=== PATIENT | female | born 1990 | race African-American/Black ===

== ENCOUNTER 2018-10-18 10:09 | Emergency (ER) | payer BC ==
[~2018-10-18] VITALS: Ht 170.2 cm; Wt 98.0 kg
[2018-10-18] MEDS ORDERED: BACITRACIN ZINC OINT UDPKT TOP ONE (15:15)
[2018-10-18] MEDS ORDERED: TETANUS, DIPHTHERIA, PERTUSSIS VAC/PF 0.5ML (>7YR OLD) IM ONE (15:15)
[2018-10-18] MEDS ORDERED: LIDOCAINE HCL/PF 1% 10 MG/ML 5ML VIAL IJ ONE (15:15)
[2018-10-18 16:46] VITALS: BP 120/66
== END 2018-10-18 16:49 | disposition home or self-care (01) ==
LOC: ER 10:09
DX: S81.012A Laceration without foreign body, left knee, initial encounter (principal); S81.011A Laceration without foreign body, right knee, initial encounter; Z98.890 Other specified postprocedural states; W18.39XA Other fall on same level, initial encounter; Y93.89 Activity, other specified; Y92.89 Other specified places as the place of occurrence of the external cause; Y99.8 Other external cause status
CPT/HCPCS: 12002; 73562; 81025; 90471; 90715; 99284; J3490

== ENCOUNTER 2018-11-10 15:16 | Emergency (ER) | payer BC ==
[~2018-11-10] VITALS: Ht 170.2 cm; Wt 98.0 kg
[2018-11-10 16:58] VITALS: BP 120/69
== END 2018-11-10 16:59 | disposition home or self-care (01) ==
LOC: ER 15:16
DX: Z48.02 Encounter for removal of sutures (principal)
CPT/HCPCS: 99283